=== PATIENT | female | born 1995 | race Asian ===

== ENCOUNTER 2021-02-08 14:14 | Inpatient (IN) | payer MEDICAID ==
[~2021-02-08] VITALS: Ht 167.6 cm; Wt 79.5 kg
[2021-02-08] MEDS ORDERED: magnesium 2GM in 50ml NS 50 ML IV ONE (14:40)
[2021-02-08] MEDS ORDERED: normal saline 1000ML IV soln IVB ONE ×2 (14:40→22:05)
[2021-02-08] MEDS ORDERED: diltiazem 5mg/ml 5ml inj. IV ONE (14:40)
[2021-02-08 15:00] LABS: BASOPHILS % (AUTO) 0.2 % (0-1); EOSINOPHILS % (AUTO) 0.3 % (0-6); HEMATOCRIT 35.5 % (35.0-45.0); HEMOGLOBIN 11.3 g/dl (12.0-16.0); LYMPHOCYTES # (AUTO) 5.3 X10'3 (1.1-4.8); LYMPHOCYTES % (AUTO) 39.9 % (21-51); MEAN CORPUSCULAR HEMOGLOBIN 20.5 PG (27.0-31.0); MEAN CORPUSCULAR HGB CONC 31.9 g/dL (33.0-36.5); MEAN PLATELET VOLUME 9.5 FL (7.4-10.4); MONOCYTES # (AUTO) 1.3 X10'3 (0-0.9); MONOCYTES % (AUTO) 9.8 % (2-12); NEUTROPHILS # (AUTO) 6.6 X10'3 (1.8-7.7); NEUTROPHILS % (AUTO) 49.8 % (42-75); PLATELET COUNT 236 X10'3 (140-440); RED BLOOD COUNT 5.54 X10'6 (4.20-5.60); RED CELL DISTRIBUTION WIDTH 15.3 % (11.5-14.5); WHITE BLOOD COUNT 13.2 X10'3 (4.5-11.0)
[2021-02-08 15:07] LABS: ALANINE AMINOTRANSFERASE 83 U/L (12-78); ALBUMIN 3.1 G/DL (3.4-5.0); ALBUMIN/GLOBULIN RATIO 0.8 (1.1-1.5); ALKALINE PHOSPHATASE 46 IU/L (46-116); ANION GAP 11 (8-16); ASPARTATE AMINO TRANSFERASE 81 U/L (10-37); BILIRUBIN,TOTAL 0.1 MG/DL (0.1-1.0); BLOOD UREA NITROGEN 19 MG/DL (7-18); BUN/CREATININE RATIO 23.5 (6.6-38.0); CALCIUM 7.7 MG/DL (8.5-10.1); CHLORIDE 111 MMOL/L (99-107); CREATININE 0.81 MG/DL (0.40-0.90); GLUCOSE 94 MG/DL (70-104); POTASSIUM 3.4 MMOL/L (3.5-5.1); SODIUM 147 MMOL/L (135-145); TOTAL CARBON DIOXIDE 25.4 MMOL/L (24-32); TOTAL PROTEIN 7.1 G/DL (6.4-8.2); eGFR 84 ML/MIN
[2021-02-08] MEDS ORDERED: aspirin 325mg tablet PO ONE (15:20)
[2021-02-08 15:26] LABS: HYPOCHROMASIA 1+; MICROCYTOSIS 2+; PLATELET ESTIMATE NORMAL; POIKILOCYTOSIS FEW
[2021-02-08] MEDS ORDERED: enoxaparin 100mg/ml syringe SUBCUT ONE (17:55)
[2021-02-08] MEDS ORDERED: heparin 10,000 units/1 ML INJ IV PRN (18:20)
[2021-02-08] MEDS ORDERED: ondansetron/PF 4mg/2ml inj IV PRN (18:20)
[2021-02-08] MEDS ORDERED: morphine 2 MG/ML inj. syringe IV PRN ×2 (18:20)
[2021-02-08] MEDS ORDERED: mag hydrox/Alum hydrox/simeth 30ml oral suspension PO PRN (18:20)
[2021-02-08] MEDS ORDERED: magnesium hydroxide 30ml (MOM) UD suspension PO PRN (18:20)
[2021-02-08] MEDS ORDERED: acetaminophen 325mg tablet PO PRN ×2 (18:20)
[2021-02-08] MEDS ORDERED: NO HOME MEDS (18:20)
[2021-02-08] MEDS ORDERED: iohexol 350MG/ML 100ml bottle IV ONE (18:32)
[2021-02-08 18:56] LABS: PARTIAL THROMBOPLASTIN TIME 30 SECONDS (22-32)
[2021-02-08 19:12] LABS: URINE HCG NEGATIVE (NEG)
[2021-02-08 19:18] LABS: HEMOGLOBIN A1C 5.1 % (4.5-6.2)
[2021-02-08 19:20] LABS: CLARITY,URINE CLEAR (Clear); COLOR,URINE YELLOW (Yellow); GLUCOSE, URINE NEGATIVE (Neg); KETONES,URINE TRACE mg/dl (Neg); LEUKOCYTE ESTERASE ,URINE NEGATIVE (Neg); NITRITES, URINE NEGATIVE (Neg); OCCULT BLOOD,URINE NEGATIVE (Neg); PROTEIN,URINE NEGATIVE (Neg); UA COLLECTION TYPE CLN CATCH MIDSTREAM; UROBILINOGEN,URINE 0.2 E.U/dL (0.2-1.0)
--- NOTE | 2021-02-08 19:20 | NUR ---
MD Montalvo ordered to HOLD the Lovenox and start pt on Heparin gtt only.
[2021-02-08] MEDS ORDERED: heparin 10,000 units/1 ML INJ IV ONE (19:30)
[2021-02-08] MEDS: docusate sod 100mg capsule PO SCH (19:36)
[2021-02-08] MEDS: metoprolol tartrate 25mg tablet PO SCH (19:40)
[2021-02-08] MEDS: heparin 25,000 UNIT/250ml bag 250 ML IV SCH (20:11)
[2021-02-08 20:24] LABS: BASOPHILS % (AUTO) 0.2 % (0-1); EOSINOPHILS # (AUTO) 0.1 X10'3 (0-0.9); EOSINOPHILS % (AUTO) 0.7 % (0-6); HEMATOCRIT 32.3 % (35.0-45.0); LYMPHOCYTES # (AUTO) 4.2 X10'3 (1.1-4.8); LYMPHOCYTES % (AUTO) 36.4 % (21-51); MEAN CORPUSCULAR HEMOGLOBIN 20.3 PG (27.0-31.0); MEAN CORPUSCULAR HGB CONC 30.9 g/dL (33.0-36.5); MEAN CORPUSCULAR VOLUME 65.6 FL (78-98); MEAN PLATELET VOLUME 9.7 FL (7.4-10.4); MONOCYTES # (AUTO) 0.9 X10'3 (0-0.9); MONOCYTES % (AUTO) 7.5 % (2-12); NEUTROPHILS # (AUTO) 6.4 X10'3 (1.8-7.7); NEUTROPHILS % (AUTO) 55.2 % (42-75); PLATELET COUNT 196 X10'3 (140-440); RED BLOOD COUNT 4.92 X10'6 (4.20-5.60); RED CELL DISTRIBUTION WIDTH 15.2 % (11.5-14.5); WHITE BLOOD COUNT 11.6 X10'3 (4.5-11.0)
--- NOTE | 2021-02-08 21:22 | NUR ---
HR elevated to the 150s, beginning 2117. MD to be notified.
--- NOTE | 2021-02-08 21:25 | NUR ---
PAGER ID: [phone] MESSAGE: Patient Madeleine Goldberg in ED 1 has an elevated HR in the 150s. Elevated HR began at 2118. Pt asymptomatic. ED Alix 7084.
[2021-02-08] MEDS ORDERED: metoprolol tartrate 1mg/ml inj IV ONE (22:05)
--- NOTE | 2021-02-08 22:09 | NUR ---
PAGER ID: [phone] MESSAGE: SECOND PAGE. Pt is still sustaining a HR of 150s Sinus Tach. Pt has hx of SVT. Pt currently asymptomatic. ED Alix 5353. Addendum: 02/08/21 at 2213 by ARLETTE MD returned call and ordered Cardizem due to sustained HR. Three attempts of vagual maneuver were unsuccessful. Repeat Stat EKG observed to be Sinus Tach.
[2021-02-08] MEDS ORDERED: diltiazem-NS 100mg/100ml 125 ML IV SCH (22:15)
--- NOTE | 2021-02-08 23:13 | NUR ---
Nurse at bedside. Pt HR has now dropped down to the 70-80s.
[2021-02-09] VITALS (14 sets, daily range): BP systolic 97–109; BP diastolic 58–76
[2021-02-09 03:29] LABS: BASOPHILS % (AUTO) 0.4 % (0-1); EOSINOPHILS # (AUTO) 0.1 X10'3 (0-0.9); EOSINOPHILS % (AUTO) 0.5 % (0-6); HEMATOCRIT 31.8 % (35.0-45.0); HEMOGLOBIN 10.2 g/dl (12.0-16.0); LYMPHOCYTES # (AUTO) 4.5 X10'3 (1.1-4.8); LYMPHOCYTES % (AUTO) 35.7 % (21-51); MEAN CORPUSCULAR HEMOGLOBIN 20.6 PG (27.0-31.0); MEAN CORPUSCULAR HGB CONC 32.2 g/dL (33.0-36.5); MEAN CORPUSCULAR VOLUME 64.2 FL (78-98); MEAN PLATELET VOLUME 9.6 FL (7.4-10.4); MONOCYTES # (AUTO) 0.7 X10'3 (0-0.9); MONOCYTES % (AUTO) 5.8 % (2-12); NEUTROPHILS # (AUTO) 7.2 X10'3 (1.8-7.7); NEUTROPHILS % (AUTO) 57.6 % (42-75); PLATELET COUNT 209 X10'3 (140-440); RED BLOOD COUNT 4.96 X10'6 (4.20-5.60); RED CELL DISTRIBUTION WIDTH 14.9 % (11.5-14.5); WHITE BLOOD COUNT 12.5 X10'3 (4.5-11.0)
[2021-02-09 04:08] LABS: ALBUMIN 2.5 G/DL (3.4-5.0); ANION GAP 5 (8-16); BLOOD UREA NITROGEN 12 MG/DL (7-18); BUN/CREATININE RATIO 17.9 (6.6-38.0); CALCIUM 7.3 MG/DL (8.5-10.1); CHLORIDE 113 MMOL/L (99-107); CHOL/HDL RATIO 1.9 (0.00-4.99); CHOLESTEROL 105 MG/DL (0-200); CREATININE 0.67 MG/DL (0.40-0.90); GLUCOSE 95 MG/DL (70-104); HDL CHOLESTEROL 56 MG/DL (35-60); LDL CHOLESTEROL 26 MG/DL (50-100); SODIUM 141 MMOL/L (135-145); TOTAL CARBON DIOXIDE 23.1 MMOL/L (24-32); TRIGLYCERIDES 141 MG/DL (20-135); eGFR > 90 ML/MIN
[2021-02-09] MEDS ORDERED: diltiazem-NS 100mg/100ml 100 ML IV SCH (06:13)
[2021-02-09] MEDS ORDERED: potassium Cl 20 mEq SR tablet PO PRN ×3 (09:25→09:40)
[2021-02-09] MEDS ORDERED: potassium Cl 40MEQ/1/2NS 520ml 520 ML IV PRN ×2 (09:25)
[2021-02-09] MEDS: metoprolol tartrate 25mg tablet PO SCH ×2 (09:35→22:01)
[2021-02-09] MEDS ORDERED: magnesium Cl slow-release 64mg tablet PO PRN (09:40)
[2021-02-09] MEDS ORDERED: magnesium 4gm in 100ml NS 100 ML IV PRN (09:40)
[2021-02-09] MEDS: aspirin 81mg, enteric-coated 1 TAB TABLET.DR PO SCH (09:50)
[2021-02-09] MEDS: docusate sod 100mg capsule PO SCH ×2 (09:50→20:00)
[2021-02-09 09:51] LABS: MAGNESIUM 2.1 MG/DL (1.5-2.4)
[2021-02-09] MEDS: potassium Cl 20 mEq SR tablet PO PRN ×3 (09:51→21:59)
--- NOTE | 2021-02-09 11:26 | NUR ---
per angeline vargas dc both the heparin and cardizem drips as not necessary for pt at this time
[2021-02-09] MEDS ORDERED: nitroGLYCERIN 0.4mg SUBLingual tab SL PRN (11:30)
[2021-02-09] MEDS ORDERED: aminophylline 250mg/10ml inj. IV PRN (11:30)
[2021-02-09] MEDS ORDERED: metoprolol tartrate 1mg/ml inj IV PRN (11:30)
[2021-02-09] MEDS ORDERED: regadenoson 0.4mg/5ml syringe IV PRN (11:30)
[2021-02-09] MEDS: flecainide 50mg tablet PO SCH ×2 (12:01→22:01)
--- NOTE | 2021-02-09 17:35 | NUR ---
per alexis vargas, plan is for pt to be kept overnight and ekg in the morning
[2021-02-09] MEDS ORDERED: LOP25T PO (17:50)
--- NOTE | 2021-02-09 18:35 | NUR ---
Rec'd report from ADDIE Carrera
--- NOTE | 2021-02-09 19:01 | NUR ---
Patient resting comfortably, no obvious distress. She is in NSR with no report of chest pain. She will be going up to [facility] 3015[facility] and I am waiting first front ventilator back for the floor.
--- NOTE | 2021-02-09 19:51 | NUR ---
Gave report to ADDIE Lott who is charge [facility].
[2021-02-09] MEDS ORDERED: K and/or MAG REPLACEMENT MC SCH (20:00)
[2021-02-09] MEDS: K and/or MAG REPLACEMENT MC SCH (20:00)
[2021-02-09] MEDS: heparin 25,000 UNIT/250ml bag 250 ML IV SCH (23:15)
[2021-02-10 02:00] VITALS: BP 94/53
[2021-02-10 06:13] LABS: BASOPHILS % (AUTO) 0.5 % (0-1); EOSINOPHILS # (AUTO) 0.2 X10'3 (0-0.9); EOSINOPHILS % (AUTO) 3.2 % (0-6); HEMATOCRIT 36.5 % (35.0-45.0); HEMOGLOBIN 11.4 g/dl (12.0-16.0); LYMPHOCYTES # (AUTO) 3.8 X10'3 (1.1-4.8); LYMPHOCYTES % (AUTO) 51.4 % (21-51); MEAN CORPUSCULAR HEMOGLOBIN 20.5 PG (27.0-31.0); MEAN CORPUSCULAR HGB CONC 31.1 g/dL (33.0-36.5); MEAN CORPUSCULAR VOLUME 65.9 FL (78-98); MEAN PLATELET VOLUME 9.8 FL (7.4-10.4); MONOCYTES # (AUTO) 0.5 X10'3 (0-0.9); MONOCYTES % (AUTO) 6.4 % (2-12); NEUTROPHILS # (AUTO) 2.9 X10'3 (1.8-7.7); NEUTROPHILS % (AUTO) 38.5 % (42-75); PLATELET COUNT 215 X10'3 (140-440); RED BLOOD COUNT 5.54 X10'6 (4.20-5.60); RED CELL DISTRIBUTION WIDTH 15.6 % (11.5-14.5); WHITE BLOOD COUNT 7.5 X10'3 (4.5-11.0)
--- NOTE | 2021-02-10 06:33 | NUR ---
Problems reprioritized. Patient report given, questions answered & plan of care reviewed with Yael.
--- NOTE | 2021-02-10 06:35 | NUR ---
Patient in room PCU 3015. I have received report from ADDIE Redman and had the opportunity to ask questions and assume patient care.
--- NOTE | 2021-02-10 06:47 | NUR ---
Patient in room PCU 3015. I have received report from Юлия REAL and had the opportunity to ask questions and assume patient care.
[2021-02-10 06:51] LABS: ALBUMIN 2.9 G/DL (3.4-5.0); ANION GAP 10 (8-16); BLOOD UREA NITROGEN 11 MG/DL (7-18); BUN/CREATININE RATIO 15.1 (6.6-38.0); CALCIUM 8.6 MG/DL (8.5-10.1); CHLORIDE 109 MMOL/L (99-107); CREATININE 0.73 MG/DL (0.40-0.90); GLUCOSE 98 MG/DL (70-104); MAGNESIUM 2.3 MG/DL (1.5-2.4); POTASSIUM 4.2 MMOL/L (3.5-5.1); SODIUM 143 MMOL/L (135-145); TOTAL CARBON DIOXIDE 24.2 MMOL/L (24-32); eGFR > 90 ML/MIN
[2021-02-10] MEDS: K and/or MAG REPLACEMENT MC SCH (06:53)
[2021-02-10 07:19] VITALS: BP 126/69
[2021-02-10] MEDS: docusate sod 100mg capsule PO SCH (07:21)
[2021-02-10] MEDS: aspirin 81mg, enteric-coated 1 TAB TABLET.DR PO SCH (07:23)
[2021-02-10 07:24] LABS: ELLIPTOCYTES FEW; MICROCYTOSIS 2+; PLATELET ESTIMATE NORMAL; SMUDGE CELLS 1+; TOTAL CELLS COUNTED 100
[2021-02-10] MEDS: flecainide 50mg tablet PO SCH (07:24)
[2021-02-10] MEDS: metoprolol tartrate 25mg tablet PO SCH (07:24)
[2021-02-10 07:25] LABS: SCHISTOCYTES FEW
--- NOTE | 2021-02-10 09:29 | NUR ---
Heparin gtt dc'd.
[2021-02-10] MEDS ORDERED: TAM50T PO (10:18)
--- NOTE | 2021-02-10 10:56 | NUR ---
Student documentation: I have reviewed and agree with all interventions, assessments performed and documented by Radha, nursing executive.
--- NOTE | 2021-02-10 10:57 | NUR ---
Student Medication Administration: For this medication-pass time frame, all medication were reviewed, dispensed, administered and documented per hospital policy by Radha nursing program chair.
[2021-02-10 11:15] VITALS: BP 106/68
--- NOTE | 2021-02-10 12:18 | NUR ---
Patient is alert and oriented in no apparent distress. Denies chest pain or discomfort. Discussed with patient discharge instructions and new prescriptions. Patient verbalizes understanding of teaching and states she has no questions. Patient IV dc'd and belongings packed and ready to dc but she is waiting for her ride.
--- NOTE | 2021-02-10 12:53 | NUR ---
Patient dc'd with all personal belongings.
== END 2021-02-10 12:20 | disposition home or self-care (01) | DRG 201 ==
LOC: ER 14:15 → UNDOADMIN 18:21 → ED HOLD 18:21 → PCU 3S 02-09 20:00
PROVIDERS: ADMIT Internal Medicine; ATTEND Internal Medicine
PROC: B32T1ZZ Computerized Tomography (CT Scan) of Left Pulmonary Artery using Low Osmolar Contrast (ICD-10-PCS; 2021-02-08)
PROC: B3201ZZ Computerized Tomography (CT Scan) of Thoracic Aorta using Low Osmolar Contrast (ICD-10-PCS; 2021-02-08)
PROC: B32S1ZZ Computerized Tomography (CT Scan) of Right Pulmonary Artery using Low Osmolar Contrast (ICD-10-PCS; 2021-02-08)
PROC: 4A02XM4 Measurement of Cardiac Total Activity, External Approach (ICD-10-PCS; principal; 2021-02-09)
PROC: 3E073KZ Introduction of Other Diagnostic Substance into Coronary Artery, Percutaneous Approach (ICD-10-PCS; 2021-02-09)
DX: I47.1 Supraventricular tachycardia (principal); I21.A1 Myocardial infarction type 2; I20.9 Angina pectoris, unspecified; E87.6 Hypokalemia
CPT/HCPCS: 36415; 71046; 71275; 78452; 80048; 80053; 80061; 81003; 81025; 83036; 83735; 83880; 84484; 85007; 85008; 85025; 85610; 85730; 87081; 93005; 93017; 93306; 96365; 96366; 99291; A9500; G0378; J0280; J1644; J2785; J3475; J3490; J7030; Q9967